=== PATIENT | female | born 1955 | race Caucasian/White ===

== ENCOUNTER 2020-06-14 02:27 | Outpatient (CLI) | payer BC, SELFPAY ==
[2020-06-15 20:39] LABS: COVID-19 RT-PCR Result NEGATIVE (Negative)
== END 2020-06-14 02:47 ==
PROVIDERS: PCP Family Medicine; Visit Provider Nurse Practitioner
DX: Z11.59 Encounter for screening for other viral diseases (principal); Z01.811 Encounter for preprocedural respiratory examination
CPT/HCPCS: U0003

== ENCOUNTER 2021-03-11 02:06 | Outpatient (CLI) | payer MEDICARE, BC, SELFPAY ==
--- NOTE | 2021-03-11 07:15 | DI.RAD_ITS ---
Exam(s) XR HIP LT COMPLETE AP PELVIS EXAM: XR HIP LT COMPLETE AP PELVIS CLINICAL HISTORY: left hip pain, chronic, G89.29, M25.552 TECHNIQUE: COMPARISON: No exams were available for comparison FINDINGS: Two views were obtained. There are multiple enthesophytes of the greater trochanter of the femur on the left. Cartilaginous joint spaces of right and left hips are fairly well maintained. Minimal mar ginal osteophyte formation of the acetabula and femoral heads noted bilaterally. Mild bilateral DJD of the SI joints noted. IMPRESSION: Degenerative changes as described above, mild DJD both hips. RADIATION DOSE DELIVERED: Total DLP
== END 2021-03-11 02:26 ==
PROVIDERS: PCP Family Medicine; Visit Provider Nurse Practitioner Family
DX: M16.0 Bilateral primary osteoarthritis of hip (principal)
CPT/HCPCS: 73502

== ENCOUNTER 2021-07-04 01:59 | Outpatient (CLI) | payer MEDICARE, BC, SELFPAY ==
[2021-07-04 12:02] LABS: Iron 96 ug/dL (50-170); Total Iron Binding Capacity 244 ug/dL (250-450); Transferrin Sat 39 % (15-50)
[2021-07-04 12:17] LABS: ALT 42 U/L (14-59); AST 19 U/L (15-37); Albumin 3.9 g/dL (3.4-5.0); Alkaline Phosphatase 75 U/L (46-116); Anion Gap 10.5 mmol/L (3-11); BUN 6 mg/dL (7-18); Bilirubin, Total 0.8 mg/dL (0.2-1.0); CO2 25.5 mmol/L (21.0-32.0); CREATININE 0.6 mg/dL (0.55-1.02); Calcium 9.1 mg/dL (8.5-10.1); Calculated LDL 173 mg/dL (<100); Chloride 106 mmol/L (98-107); Cholesterol 233 mg/dL (<200); Ferritin 205 ng/mL (8-252); Glucose 96 mg/dL (74-106); HDL Cholesterol 52 mg/dL (40-60); Potassium 4.3 mmol/L (3.5-5.1); Sodium 142 mmol/L (136-145); TSH (W/Ref FT4) 1.04 uIU/mL (0.36-3.74); Total Protein 6.5 g/dL (6.4-8.2); Triglyceride 41 mg/dL (<150)
[2021-07-07 11:45] LABS: Hepatitis C Ab w Rflx HCV PCR Negative (Negative)
== END 2021-07-04 02:00 | disposition home or self-care (01) ==
LOC: LBO 01:59
PROVIDERS: PCP Family Medicine; Visit Provider Family Medicine
DX: E03.9 Hypothyroidism, unspecified (principal); D50.9 Iron deficiency anemia, unspecified; G25.81 Restless legs syndrome; G47.33 Obstructive sleep apnea (adult) (pediatric)
CPT/HCPCS: 36415; 80053; 80061; 86803; 82728; 83540; 83550; 84443

== ENCOUNTER 2022-07-14 12:39 | Outpatient (CLI) | payer MEDICARE, BC, SELFPAY ==
[2022-07-14 12:02] LABS: Hemoglobin A1C 5.3 % (<5.7)
[2022-07-14 12:11] LABS: Anion Gap 6.1 mmol/L (3-11); BUN 9 mg/dL (7-18); CO2 30.9 mmol/L (21.0-32.0); CREATININE 0.8 mg/dL (0.55-1.02); Calcium 9.2 mg/dL (8.5-10.1); Calculated LDL 141 mg/dL (<100); Chloride 106 mmol/L (98-107); Cholesterol 235 mg/dL (<200); Estimated GFR 81.21 (mL/min/1.73m2); Glucose 114 mg/dL (74-106); HDL Cholesterol 80 mg/dL (40-60); Potassium 3.8 mmol/L (3.5-5.1); Sodium 143 mmol/L (136-145); Triglyceride 71 mg/dL (<150)
== END 2022-07-14 12:40 | disposition home or self-care (01) ==
LOC: LBO 12:40
PROVIDERS: PCP Family Medicine; Visit Provider Nurse Practitioner Family
DX: E66.9 Obesity, unspecified (principal); E78.5 Hyperlipidemia, unspecified; R73.01 Impaired fasting glucose
CPT/HCPCS: 36415; 80048; 80061; 83036

== ENCOUNTER 2022-08-19 15:28 | Outpatient (REF) | payer MEDICARE, BC, SELFPAY ==
[2022-08-19 16:25] LABS: C Diff PCR Negative (Negative)
[2022-08-20 11:09] LABS: Salmonella PCR Negative (Negative); Shiga Toxin PCR Negative (Negative); Shigella/Enteroinvasive Ecoli Negative (Negative)
[2022-08-20 16:37] LABS: Campylobacter PCR Positive (Negative)
== END 2022-08-19 15:29 | disposition home or self-care (01) ==
LOC: LBN 15:28
PROVIDERS: PCP Family Medicine; Visit Provider Physician Assistant
DX: R19.7 Diarrhea, unspecified (principal)
CPT/HCPCS: 87493; 87505; 87177

== ENCOUNTER 2022-12-30 16:44 | Outpatient (CLI) | payer MEDICARE, BC, SELFPAY ==
--- NOTE | 2022-12-30 15:30 | DI.RAD_ITS ---
Exam(s) XR SHOULDER RT COMPLETE 2+V XR HUMERUS RT EXAM: XR SHOULDER RT COMPLETE 2+V and XR humerus RT CLINICAL HISTORY: Rt shoulder pain, M25.511, evaluate pathology. TECHNIQUE: 2D digital imaging was performed of the right shoulder. Seven images were obtained. AP, Grashey, Y-view and axillary views were obtained. COMPARISON: CR RIGHT SHOULDER COMPLETE from 10/16/2011 CR XR HUMERUS RT from 12/30/2022 FINDINGS: BONES: There is a sideplate and screws transfixing the old healed proximal right humeral fracture. T here is flattening of the articular surface of the humeral head. No bony destructive lesion is seen. There is no acute fracture or dislocation present. The bones are osteopenic. JOINTS: No dislocation present. Degenerative changes are seen at both the glenohumeral and acromiocla vicular joints characterized by bony hypertrophy and joint space narrowing. SOFT TISSUE: Normal. IMPRESSION: 1. Old fracture deformity of the proximal right humerus. 2. Degenerative changes at the acromioclavicular and glenohumeral joints. DATA REPOSITORY: RADIATION DOSE DELIVERED:
== END 2022-12-30 17:04 ==
LOC: DI 16:47
PROVIDERS: PCP Family Medicine; Visit Provider Family Medicine
DX: M25.511 Pain in right shoulder (principal); M89.8X2 Other specified disorders of bone, upper arm
CPT/HCPCS: 73030; 73060

== ENCOUNTER → 2023-06-25 03:07 | Outpatient (CLI) | payer MEDICARE, BC, SELFPAY ==
--- NOTE | 2023-06-25 07:30 | DI.DEXA_ITS ---
Exam(s) XR DEXA BONE DENSITY W/WO KISHOR EXAM: XR DEXA BONE DENSITY W/WO KISHOR CLINICAL HISTORY: SCREENING FOR OSTEOPOROSIS IN POSTMENOPAUSAL WOMAN,Z78.0 TECHNIQUE: HoloLumenpulse Horizon C densitometer analysis of left hip, lumbar spine and left forearm. Lat eral survey image of the thoracic and lumbar spine. COMPARISON: CR XR HUMERUS RT from 12/30/2022 FINDINGS: Lateral view of the thoracic and lumbar spine shows no evidence of compression fractures. Bone mineral density measurements of the lumbar spine correspond to a total T-score of 0.9, in the n ormal range Bone mineral density measurements of the left hip correspond to a total T-score of 0.3. The femoral neck T-score is -0.9, in the normal range.. Theleft forearm bone mineral density measurements correspond to a T-score of the distal 3rd of 0.3, in the normal range.. IMPRESSION: Normal bone mineral density.
== END ==
PROVIDERS: PCP Family Medicine; Visit Provider Nurse Practitioner Family
DX: Z78.0 Asymptomatic menopausal state (principal); Z13.820 Encounter for screening for osteoporosis
CPT/HCPCS: 77080

== ENCOUNTER → 2023-08-16 08:56 | Outpatient (BNVA) | payer MEDICARE, BC, SELFPAY | PROVIDERS: PCP Family Medicine; Referring Provider Family Medicine; Visit Provider Surgery | DX: Z12.11 Encounter for screening for malignant neoplasm of colon (principal); D12.6 Benign neoplasm of colon, unspecified; Z85.3 Personal history of malignant neoplasm of breast ==

== ENCOUNTER 2023-09-03 09:15 | Day surgery (SDC) | payer MEDICARE, BC, SELFPAY ==
--- NOTE | 2023-09-02 19:51 | COLE_ITS ---
Date of service: 09/03/23 Time of Service: 11:20 Colonoscopy Report Date of procedure: 09/03/23 Pre-op diagnosis general: adenomatous polyps/diverticula Post-op diagnosis procedure note: same Surgeon: Smita Mora Anesthesia Type: General:No Airway Estimated blood loss (mL): 1 Complications: None Disposition: same day Prep: Miralax/Dulcolax Retraction Time: 14 Procedure Description: After informed consent was obtained the patient was taken to the procedure room and placed in a left decubitous position. Monitors were applied and a time out was done. The patients name, date of , procedure, allergies to medications and metal in their body was reviewed. The patient was then sedated. Once sedated and comfortable a rectal exam was done. External exam was normal. Internal exam revealed a normal sphincter tone and no palpable masses. The scope was then introduced and retrofelexed. No internal hemorrhoids were identified. The scope was then advanced to the cecum without difficulty. The TI and appendiceal orifice were identified. The prep was BBPS 3 in all segments for a total of 9. The scope was then slowly retracted over 14 minutes back into the rectum. She has barrera diverticula throughout the entirety of the colon. Th ere are no signs of active bleeding or infection. She does have inspissated stool in many of the diverticula. She has a 0.75 cm pedunculated polyp at 20 cm. This is removed with a cold snare. All specimen is retrieved and no bleeding is noted the scope was removed and the patient was woken up and taken back to Same day surgery in stable condition. The patient tolerated the procedure well and there were no immediate complications. Follow up: The patient should follow up in 5-7 years, path pd, unless they develop changes in bowel habits or other new gastrointestinal complaints.
--- NOTE | 2023-09-02 19:54 | PDOC.DSDIS_ITS ---
Date of service: 09/03/23 Time of Service: 11:18 Discharge Plan Disposition Patient Disposition: Home Condition: Good Discharge Details Reason For Visit: colon scope Attending Provider: Smita Mora Primary Care Provider: Myriam Liu Home Meds and New Rx's Prescriptions: Continued varicella-zoster gE-AS01B (PF) 50 mcg/0.5 mL suspension for reconstitution 0.5 ml IM ONCE Qty: 1 0RF Rx Instructions: 2 doses 2 months apart Systane Complete 0.6 % drops 1 drp ophthalmic (eye) DAILY PRN metronidazole 0.75 % cream 1 applic topical DAILY PRN Discontinued polyethylene glycol 3350 17 gram/dose powder 238 g PO ONCE Qty: 238 0RF Rx Instructions: take per colonoscopy instructions bisacodyl [Dulcolax (bisacodyl)] 5 mg tablet,delayed release (DR/EC) 5 mg PO ONCE Qty: 4 0RF Rx Instructions: take per colonoscopy instructions Discharge Instructions Additional Instructions: [facility] Colonoscopy Post- Op Instructions Instructions for Everyone who is given Anesthesia: For your safety, please do the following for the next twenty-four (24) hours: *Do Not operate a motor vehicle (car, truck, motorcycle, etc.) *Do Not drink alcoholic beverages or use any recreational drugs for the first 24 hours or while taking pain medications. The medications in your body may have a reaction that can be dangerous. *Do Not make any important decisions or sign any important papers. Findings: polypx1 diverticular disease-make sure you are moving your bowels on a regular basis and you are not straining to go to the bathroom. Straining/constipation can cause bleeding and infections. Consider starting Metamucil or a fiber supplement daily Follow up: My office will send you a letter in 2 to 3 weeks time with the results of the pathology and when we want you to repeat the colonoscopy, most likely 5 to 7 years time. 1. No lifting over 20 pounds or strenuous activity for the first 24 hours after your procedure. After 24 hours there are no restrictions on your activity but you may feel fatigued for a few days. 2. After you arrive home you may have a light meal and return to your normal diet as you can tolerate it without feeling sick to your stomach. 3. You may have a bloated, gaseous feeling in your belly (abdomen) after a colonoscopy. Passing gas and belching will help. Walking or lying down on your left side with your knees flexed may relieve the discomfort. Call the office at [phone] (Office) or [phone] (Hospital) right away if you notice any of the following: a.Vomiting of blood or ?coffee ground stools?. b.Rectal bleeding 1Tbsp, blood clots or continuous bleeding. c.Severe belly (abdominal) pain. d.A hard distended belly (abdomen) and an inability to pass gas. 4. Please don?t expect to have a normal BM (bowel movement) for 2-3 days after your procedure. 5. If there are questions regarding the findings of your procedure, please contact your doctor 6. If you are unable to contact your doctor with a problem, contact the hospital at [phone]. 7. Continue all your regular medications unless directed otherwise. I understand the above instructions and have no questions. Signature of Patient or Adult Escort Name of Responsible Adult Escort Signature of Nurse Date/Time Activity:: see above Diet:: see above Discharge Orders Discharge Orders: Discharge Order (Routine); Ordered 09/03/23 Ordered By: Smita Mora DS: Diagnosis Discharge Diagnosis (1) History of left breast cancer: Status: Acute (2) Hyperlipidemia: Status: Acute (3) Tubular adenoma of colon: Status: Acute (4) Obstructive sleep apnea: Status: Chronic (5) Obesity (BMI 30.0-34.9): Status: Acute (6) Restless leg syndrome: Status: Acute (7) Diverticulosis: Status: Acute Asessment and Plan: The patient is seen and examined after their colonoscopy.? The patient has been able to pass gas.? They are not having abdominal pain.? They have been able to tolerate liquids and a snack.? They do not have any nausea or vomiting.? They are not having any chest pain or shortness of breath.??? They are not having any rectal bleeding. Their vital signs have been stable-see nursing notes. We discussed findings during their colonoscopy, and any biopsies that were done/polyps that were removed. The patient will be sent a letter with any biopsy results, and when to repeat the colonoscopy.-see discharge instructions. Patient was given explicit instructions to follow-up regarding colonoscopy-refer to discharge instructions.? We reviewed resumption of medications. Patient verbalized understanding and discharged in stable and satisfactory condition- See nursing notes.
[2023-09-03 09:39] VITALS: BP 136/91; PULSE 81; RESP 16; TEMP 36.2; O2SAT 96
[2023-09-03] MEDS: Lactated Ringers 1,000 ML 80 ML IV (09:47)
--- NOTE | 2023-09-03 10:10 | ANES.PREOP_ITS ---
General Info Date of Service Date Performed: 09/03/23 Height: 5 ft 6 in Weight: 88.6 kg Body Mass Index (BMI): 31.5 Surgical Procedure: Operation Date: 09/03/23 09:35 Proposed Procedure Side Surgeon estefany Mora, DO Meds Allergies and Home Medications Allergies Allergy/AdvReac Type Severity Reaction Status Date / Time No Known Allergies Allergy Verified 09/03/23 09:53 Home Medication Medication Instructions Recorded metronidazole 0.75 % topical cream 1 applic topical DAILY PRN 06/03/22 varicella-zoster glycoE vacc-AS01B 0.5 ml IM ONCE #1 ea 06/04/23 adj(PF) 50 mcg/0.5 mL IM susp, kit propylene glycol 0.6 % eye drops 1 drp ophthalmic (eye) DAILY PRN 08/16/23 (Systane Complete) Current Visit Medications: Current Medications Generic Name Dose Route Start Last Admin Trade Name Freq PRN Reason Stop Dose Admin Hyoscyamine Sulfate 0.125 mg 09/03/23 07:48 Hyoscyamine 0.125 Mg Sl/Oral/Chew SL 10/03/23 07:47 DIRECTED PRN Ringer's Solution 1,000 mls @ 80 mls/hr 09/03/23 06:00 09/03/23 09:47 IV 09/03/23 23:59 80 mls/hr INFUSION GREGG Administration IV Miscellaneous Supplies 1 each 09/03/23 06:00 Iv Access IV 09/03/23 23:59 DIRECTED GREGG Ondansetron HCl 4 mg 09/03/23 07:48 Ondansetron 4 Mg/2 Ml Vial IVP 10/03/23 07:47 Q4H PRN PRN Nausea / Vomiting Sodium Chloride 0 ml 09/03/23 06:00 Normal Saline Flush 10 Ml Syr IV 09/03/23 23:59 PRN PRN Sodium Chloride 0 ml 09/03/23 06:00 Normal Saline 10 Ml Vial IJ 09/03/23 23:59 DIRECTED PRN Sterile Water 0 ml 09/03/23 06:00 Water,Injection,Sterile 10 Ml Vial IJ 09/03/23 23:59 DIRECTED PRN PFSH Active Problems Active Problems: Problem Status Onset Code Diverticulosis K57.90 History of left breast cancer Z85.3 Left shoulder pain M25.512 Hyperlipidemia E78.5 Lipoma of back D17.1 Rosacea L71.9 Left tennis elbow M77.12 Tubular adenoma of colon 01/19/17 D12.6 Restless leg syndrome G25.81 Obstructive sleep apnea G47.33 Obesity (BMI 30.0-34.9) E66.9 Medical History Medical History Closed fracture of humerus, upper epiphysis left Ductal carcinoma of breast, estrogen receptor positive, stage 1 (~1996) managed at [facility] Shoulder pain Medical History Comments:: 09/03/23: do not do IV's/BP on LEFT side Surgical History Surgical History Breast, Lumpectomy left; lumpectomy for malignant Tobacco Smoking/Tobacco Use Status: Never Passive smoking exposure: Yes Second hand exposure: Yes Alcohol Alcohol Intake: current Alcohol intake frequency: a few times a week Alcohol type: beer, wine and hard liquor Counseling provided: provider counseling Substance Use Substance use: Rarely Substance use type: marijuana Details: 09/03/23: Marijuana helps her sleep, last used 1 week ago. Vital Signs and Lab Results Vital Signs Most Recent Vital Signs in EMR: Most Recent Vital Signs Temp Pulse Resp BP Pulse Ox 36.2 C L 81 16 136/91 H 96 09/03/23 09:39 09/03/23 09:39 09/03/23 09:39 09/03/23 09:39 09/03/23 09:39 Lab Results Blood Type / Crossmatch: No Data to Display Complete Blood Count: No Data to Display Complete Metabolic Panel: No Data to Display Liver Function Panel: No Data to Display Coagulation Panel: No Data to Display Cardiac Panel: No Data to Display Arterial Blood Gas: No Data to Display Venous Blood Gas: No Data to Display Pancreas Panel: No Data to Display Thyroid Panel: No Data to Display Infectious Disease: No Data to Display Blood Cultures: No Data to Display Toxicology Panel: No Data to Display Anesthesia Assessment and Plan Anesthesia History Personal History: No History of Anesthesia Complications Family History: No Family History of Anesthesia Complications Exercise Tolerance Exercise Tolerance: Metabolic Equivalents>4 Pertinent Negatives Pertinent Negatives: No Symptoms of GERD, No Major Cardiovascular Symptoms or Complaints, No Major Pulmonary Symptoms or Complaints and No History of CVA/TIA Cardiac & Pulmonary Exam Cardiac Exam: Normal S1/S2 Heart Sounds Pulmonary Exam: Clear Bilateral Breath Sounds Implantable Cardiac Device Does patient have a Pacemaker or an ICD?: No Airway Exam Known Difficult Airway: No Mallampati Class: 2 Mouth Opening: Normal (> 3cm) Thyromental Distance: Greater than 3 cm Neck Range of Motion: Full ROM Neck Circumference: Normal Teeth Condition: Normal Dentition ASA Classification ASA Score: ASA 2 Emergency Case?: No NPO Status NPO Status: NPO Clears >2 hours, Solids >8 hours Anesthesia Plan Resuscitation Status: Full Code Anesthesia Technique: General Anesthesia Airway Planned: Natural Airway Monitors Used: Standard Monitors
[2023-09-03 10:13] VITALS: BMI 31.5
--- NOTE | 2023-09-03 10:52 | BOWEL_PTH ---
PATIENT: Zacarias Lewis LOC: [facility] U#:[id number] AGE/SX: 68/F ROOM: RE09/03/[address]: Smita Mora : 1955 BED: DIS: 09/03/2023 SPEC #: [id number] RECD: 09/03/23 12:49 STATUS: WESLEY REQ #: [id number] ASHLYN: 09/03/23 10:[address]: Smita Mora DEPT: Surgical Specimen RECD BY: Madhavi Lucas ENTERED: 09/03/23 12:50 SP TYPE: Bowel OTHR DR: Myriam Liu Tissues: 1 - BIOPSY BOWEL Procedures: GROSS AND MICRO LEVEL 4 Comments: [id number]
[2023-09-03 11:05] VITALS: BP 107/79; PULSE 86; RESP 16; TEMP 36.6; O2SAT 97
--- NOTE | 2023-09-03 11:13 | W.ANESPOSTOP ---
Postoperative Evaluation Date, Time and Location Date Performed: 09/03/23 Time Performed: 11:13 Patient Location: Day Surgery Unit Vital Signs Most Recent Imported Vital Signs: Most Recent Vital Signs Temp Pulse Resp BP Pulse Ox 36.6 C 86 16 107/79 97 09/03/23 11:05 09/03/23 11:05 09/03/23 11:05 09/03/23 11:05 09/03/23 11:05 Pain Score Most Recent Pain Score: Most Recent Pain Score Pain Level 0 09/03/23 11:05 Assessment Mental Status: Awake (Alert & Oriented to Patient Baseline) Airway and Respiratory Function: Patent airway with normal (patient baseline) respiratory exam Cardiovascular Function: Hemodynamically Stable Hydration Status: Adequately Hydrated Nausea & Vomiting: No Nausea or Vomiting Pain: Pt. Denies Any Pain Peripheral Nerve Block: Patient did not receive a nerve block
[2023-09-03 11:34] VITALS: BP 136/82; PULSE 72; RESP 16; TEMP 36.4; O2SAT 97
== END 2023-09-03 12:25 | disposition home or self-care (01) ==
LOC: SUR 09:15
PROVIDERS: PCP Family Medicine; Visit Provider Surgery
PROC: 0DJD8ZZ Inspection of Lower Intestinal Tract, Via Natural or Artificial Opening Endoscopic (ICD-10-PCS; CPT 45378; principal; 2023-09-03 09:30)
DX: G47.33 Obstructive sleep apnea (adult) (pediatric) (principal); Z12.11 Encounter for screening for malignant neoplasm of colon; K57.90 Diverticulosis of intestine, part unspecified, without perforation or abscess without bleeding; D37.4 Neoplasm of uncertain behavior of colon; J44.9 Chronic obstructive pulmonary disease, unspecified
CPT/HCPCS: 45385; 88305; J2001

== ENCOUNTER → 2024-04-10 10:29 | Outpatient (BNVA) | payer MEDICARE, BC, SELFPAY | PROVIDERS: PCP Family Medicine; Referring Provider Family Medicine; Visit Provider Surgery | DX: D17.1 Benign lipomatous neoplasm of skin and subcutaneous tissue of trunk | CPT/HCPCS: 99213 ==

== ENCOUNTER 2024-05-09 07:12 | Day surgery (SDC) | payer MEDICARE, BC, SELFPAY ==
[2024-05-09 07:31] VITALS: BP 134/86; PULSE 80; RESP 16; TEMP 36.1; O2SAT 97
[2024-05-09] MEDS: Acetaminophen 500 MG TAB 1000 MG PO (07:44)
[2024-05-09] MEDS: Gabapentin 300 MG CAP 600 MG PO (07:44)
[2024-05-09] MEDS: Lidocaine/Prilocaine Cream 5 GM TUBE TP (07:47)
--- NOTE | 2024-05-09 09:00 | SOFT_PTH ---
PATIENT: Zacarias Lewis LOC: [facility] U#:[id number] AGE/SX: 69/F ROOM: RE05/09/[address]: Smita Mora : 1955 BED: DIS: 05/09/2024 SPEC #: [id number] RECD: 05/09/24 12:41 STATUS: WESLEY REQ #: [id number] ASHLYN: 05/09/24 09:[address]: Smita Mora DEPT: Surgical Specimen RECD BY: Madhavi Lucas ENTERED: 05/09/24 12:42 SP TYPE: SOFT OTHR DR: Myriam Liu Tissues: 1 - SOFT TISSUE MISC (INC. LIPOMA) Procedures: GROSS AND MICRO LEVEL 3 Comments: [id number]
[2024-05-09] MEDS: Lidocaine 1% Pres-Free 30 ML VIAL (09:12)
--- NOTE | 2024-05-09 09:29 | ROE_ITS ---
Date of service: 05/09/24 Time of Service: 09:29 Operative Note Operative Note DATE OF PROCEDURE: 05/09/24 PRE-OP DIAGNOSIS: lipoma POST-OP DIAGNOSIS: same PROCEDURE: exicison lipoma 3x2 SURGEON: Smita Mora ANESTHESIA TYPE: Local By Surgeon Refer to Anesthesia Record ESTIMATED BLOOD LOSS: 5 PATHOLOGY: other COMPLICATIONS: None Patient was transported to: same day Procedure Description: Patient is here today for lipoma removal. The lesion is marked in same day. She is brought to the procedure room and placed in left lateral position. Timeout was performed. The areas prepped and draped in the usual sterile fashion using Betadine scrub solution. Some filtrated 40 cc of 1% lidocaine. A inch and a half incision is made over the apex of the lesion horizontally. Electrocautery was used to provide hemostasis and dissect the lesion out from the subcutaneous tissue. He does appear to be a lipoma. It is 3 x 2 inches and appears to be a lipoma. This is sent to pathology. Again cautery was used for hemostasis. The wound is an 8 irrigated with sterile saline. Deep tissues approximated with 4-0 Vicryl and skin is approximated with 3-0 interrupted Pro estefanía. Sterile compression dressing is applied. Patient tub to do well without complication transferred to cover room in stable condition. She will follow-up with the office in 10 days for suture removal.
--- NOTE | 2024-05-09 09:30 | PDOC.DSDIS_ITS ---
Date of service: 05/09/24 Time of Service: 09:30 Discharge Plan Disposition Patient Disposition: Home Condition: Good Discharge Details Reason For Visit: lipoma removal Attending Provider: Smita Mora Primary Care Provider: Myriam Liu Home Meds and New Rx's Prescriptions: New tramadol 50 mg tablet 50 mg PO Q4H PRNQty: 7 0RF Rx Instructions: will cause constipation Continued Systane Complete 0.6 % drops 1 drp ophthalmic (eye) DAILY PRN metronidazole 0.75 % cream 1 applic topical DAILY PRN lutein 20 mg tablet 20 mg PO DAILY Rx Instructions: give with meal/snack Discharge Instructions Additional Instructions: Wound Care Instruction Pain Control Use ice!? Ice keeps the swelling down and swelling is what causes pain.? Never apply ice directly to the skin.? Wrap it in a towel or cloth.? Apply ice 20 minutes on and 20 minutes off for pain control.? Use as needed. Take Tylenol 500 mg by mouth with food every 4 hours as needed for pain. Or ibuprofen 600 mg by mouth with food every 6 hours as needed for pain.? Do not take Tylenol if you have a history of heavy drinking, hepatitis C or liver probl ems.? Do not take ibuprofen if you have a history of stomach ulcers/problems, bleeding problem or kidney issues. ? Always wash your hands before touching your incision. ? Keep the incision clean, dry, and out of water, keep the incision out of water. ? Do not to pick at the scabs. Scabs help protect the wound. ? You can take a shower in 24 hours and wash the incision with soap and water. Pat dry/don?t scrub. It?s OK to wash around the incision. But don?t spray water directly on it. ? Pat stitches dry if they get wet. Don't rub. ? Check the incision site daily for pain, redness, drainage, swelling, or separation of the incision edges. ? Make sure any clothing that touches the incision is loose-fitting. This will prevent rubbing. As your incision heals, the skin may appear pink or red. It may also feel slightly bumpy or raised. This is called a healing ridge. Over time, the color should fade and the raised skin will become less noticeable. When to seek medical care Call your healthcare provider right away if you have any of these: ? More pain, redness, swelling, bleeding, or foul-smelling discharge around the incision area ? Fever of 101?F (38.3?C) or higher, or as directed by your child's healthcare provider ? Shaking chills ? Vomiting or nausea that doesn?t go away ? Numbness, coldness, or tingling around the incision area, or changes in skin color ? Opening of the sutures or wound -Stitches or izzy that come apart or fall out or surgical tape falls off before 7 days, or as directed by your healthcare provider ?[facility]: [phone] Stand Alone Forms: Wood Ferrari ([facility]) Referrals: Smita Mora DO [OSTEOPATHIC DOCTOR] - 05/22/24 9:45 am Activity:: see above Remove Dressings/Wound Care:: 24 hours Shower/Bathe:: 24 hours Diet:: As Tolerated DS: Diagnosis Discharge Diagnosis (1) Lipoma of back: Status: Acute Asessment and Plan: The patient is doing well post-op from their lipoma removal.? They are having no nausea or vomiting. They are tolerating liquids and a snack. The pt is not having any chest pain or SOB.? Their pain is adequately controlled. They have been able to urinate.? ?HEENT:? no eye pain/drainage/redness/swelling. Mild sore throat ?Cardio- NSR, no chest pain, BP stable- see VS record ?Pulm: no sob or productive cough. No hemoptysis ?Incision- dressing is c/d/i w/ no excessive bleeding or drainage ?I discussed with the patient the findings at the time of surgery and the patient?s progress. ?We reviewed expectations at home; what the patient could expect for recovery time, and in the post-operative period.? We discussed the importance of walking to avoid blood clots and pneumonia.? We discussed and reviewed the patient's post-operative wound care and dressing needs.?? We reviewed their step-colvin pain management plan, Rx called to the pharmacy of their choice.? We reviewed activity and limitations-see discharge instructions. We reviewed warning signs, and when to seek medical attention- see d/c instructions.?? Patient was given a postoperative follow-up appointment. Patient verbalized understanding of their postoperative instructions, how do to take care of themselves and their incision, and the pain management plan. Please see discharge instructions.?
[2024-05-09 09:32] VITALS: BP 158/81; PULSE 63; RESP 16; TEMP 36.2; O2SAT 97
--- NOTE | 2024-05-09 09:36 | W.PM.DSUDISC ---
Date of service: 05/09/24 Time of Service: 09:39 Discharge Plan Disposition Patient Disposition: Home Condition: Good Discharge Details Reason For Visit: lipoma removal Attending Provider: Smita Mora Primary Care Provider: Myriam Liu Home Meds and New Rx's Prescriptions: New tramadol 50 mg tablet 50 mg PO Q4H PRNQty: 7 0RF Rx Instructions: will cause constipation Continued Systane Complete 0.6 % drops 1 drp ophthalmic (eye) DAILY PRN metronidazole 0.75 % cream 1 applic topical DAILY PRN lutein 20 mg tablet 20 mg PO DAILY Rx Instructions: give with meal/snack Discharge Instructions Additional Instructions: Wound Care Instruction Pain Control Use ice!? Ice keeps the swelling down and swelling is what causes pain.? Never apply ice directly to the skin.? Wrap it in a towel or cloth.? Apply ice 20 minutes on and 20 minutes off for pain control.? Use as needed. Take Tylenol and ibuprofen continuously for the first 3 days, not just when you had pain. After that you can take it as needed for pain. You do have a few Ultram for pain greater than a 7. Take Tylenol 500 mg by mouth with food every 4 hours as needed for pain. Or ibuprofen 600 mg by mouth with food every 6 hours as needed for pain.? Do not take Tylenol if you have a history of heavy drinking, hepatitis C or liver problems.? Do not take ibuprofen if you have a history of stomach ulcers/problems, bleeding problem or kidney issues. ? Always wash your hands before touching your incision. ? Keep the incision clean, dry, and out of water. You can shower but do not soak. ? Do not to pick at the scabs. Scabs help protect the wound. ? You can take a shower in 24 hours and wash the incision with soap and water. Pat dry/don?t scrub. ? Pat stitches dry if they get wet. Don't rub. * You will want to keep Band-Aid on the incision. * No lifting over 5 pounds with right arm for 5 days ? Check the incision site daily for pain, redness, drainage, swelling, or separation of the incision edges. ? Make sure any clothing that touches the incision is loose-fitting. This will prevent rubbing. As your incision heals, the skin may appear pink or red. It may also feel slightly bumpy or raised. This is called a healing ridge. Over time, the color should fade and the raised skin will become less noticeable. When to seek medical care Call your healthcare provider right away if you have any of these: ? More pain, redness, swelling, bleeding, or foul-smelling discharge around the incision area ? Fever of 101?F (38.3?C) or higher, or as directed by your child's healthcare provider ? Shaking chills ? Vomiting or nausea that doesn?t go away ? Numbness, coldness, or tingling around the incision area, or changes in skin color ? Opening of the sutures or wound -Stitches or izzy that come apart or fall out or surgical tape falls off before 10 days, or as directed by your healthcare provider ?[facility]: [phone] Stand Alone Forms: Wood Ferrari (U) Referrals: Smita Mora DO [OSTEOPATHIC DOCTOR] - 05/22/24 9:45 am Activity:: see above Remove Dressings/Wound Care:: 24 hours Shower/Bathe:: 24 hours Diet:: As Tolerated DS: Diagnosis Discharge Diagnosis (1) Lipoma of back: Status: Acute
== END 2024-05-09 10:08 | disposition home or self-care (01) ==
PROVIDERS: PCP Family Medicine; Visit Provider Surgery
PROC: (CPT 11406; principal; 2024-05-09 08:15)
DX: D17.1 Benign lipomatous neoplasm of skin and subcutaneous tissue of trunk (principal); E66.9 Obesity, unspecified; G47.33 Obstructive sleep apnea (adult) (pediatric); Z85.3 Personal history of malignant neoplasm of breast; E78.5 Hyperlipidemia, unspecified
CPT/HCPCS: 11406; 12032; 88304

== ENCOUNTER → 2024-05-22 09:31 | Outpatient (BNVA) | payer MEDICARE, BC, SELFPAY | PROVIDERS: PCP Family Medicine; Referring Provider Family Medicine; Visit Provider Surgery | DX: Z48.817 Encounter for surgical aftercare following surgery on the skin and subcutaneous tissue (principal); D17.1 Benign lipomatous neoplasm of skin and subcutaneous tissue of trunk ==

== ENCOUNTER → 2024-06-05 15:03 | Outpatient (BNVA) | payer MEDICARE, BC, SELFPAY | PROVIDERS: PCP Family Medicine; Referring Provider Family Medicine; Visit Provider Physical Therapy Assistant | DX: Z48.817 Encounter for surgical aftercare following surgery on the skin and subcutaneous tissue (principal); Z48.02 Encounter for removal of sutures ==

== ENCOUNTER 2024-07-31 01:35 | Outpatient (CLI) | payer MEDICARE, BC, SELFPAY ==
--- NOTE | 2024-07-31 | DI.US_ITS ---
Exam(s) US BREAST LT COMPLETE US BREAST RT COMPLETE MG MAMMO SCREENING 60 MIN DUR EXAM: MG MAMMO SCREENING 60 MIN AND BILATERAL COMPLETE BREAST ULTRASOUND CLINICAL HISTORY: breast cancer screening,personal h/o breast ca,z85.3,z12.39. TECHNIQUE: Bilateral full field digital CC and MLO mammographic images were obtained with 3D tomosyn thesis and utilizing computer aided detection (CAD). Also performed BILATERAL COMPLETE BREAST ULTRASOUND including all 4 quadrants of both breasts, the re troareolar regions, and both axillary regions. COMPARISON: Prior outside mammograms were reviewed. This patient has had a remote lateral left bandar st lumpectomy for malignancy and has subsequently had an excisional biopsy in the retroareolar region of the left breast in [place] few years ago. FINDINGS: MAMMOGRAM: Architectural distortion and indrawn nipple on the left side again noted. The left breast lumpectomy site located laterally also appears stable. In the left breast on the CC view there is a small well-defined nodular density located slightly medi al of center approximately 7 cm in from the nipple measuring approximately 3 x 4 mm, unchanged from . Benign calcified oil cysts are seen laterally near the region of prior lumpectomy. There are no new malignant-appearing no calcification groups in the left breast. Right breast there are few small nodular densities noted at 12 o'clock position, these measuring 4 mm and located approximately 6 cm in from the nipple on the CC view. Another more centrally located well-defined nodular density is also noted. These are all shown to be microcysts on ultrasound performed following today's mammogram. There are no new spiculated masses nor malignant-appearing microcalcification groups in the right [place] ast. There is no significant architectural distortion nor skin thickening-retraction. BILATERAL COMPLETE BREAST ULTRASOUND: Right breast ultrasound: At the 12 o'clock position there are 2 small microcysts measuring 3 and 4 mm, these corresponding to the new findings on the mammogram. There is also an 8 x 4 mm benign microcyst at 6 o'clock position corresponding to other finding on the mammogram. There are no other significant focal findings in al l 4 quadrants of the right breast. Scanning of the right axilla is negative for adenopathy. Left breast ultrasound: There is scar-like tissue at the site of the remote lumpectomy located laterally as well as in the re gion of the more recently performed excisional biopsy in the retroareolar region. Otherwise, there are no solid or significant cystic lesions in all 4 quadrants of the left breast. T here are no focal findings seen on ultrasound to correspond to a benign-appearing nodular seen on the CC view.. This is most probably benign intramammary lymph node. Scanning of the left axilla is negative for adenopathy. IMPRESSION: 1. Few small new nodule seen in the right breast on mammography correspond to benign microcysts on u ltrasound as described above. There are no new solid right breast lesions. 2. Stable appearance of the 2 prior surgical sites in the left breast including a remote lumpectomy and more recently performed excisional biopsy in the retroareolar region. BI-RADS Category 2 - Benign Findings Breast Density - Category B - Scattered areas of fibroglandular density Breast density Category C or D implies that the patient has dense breast tissue. Dense breast tissue can make it harder to find cancer on a mammogram. Dense breast tissue is also associated with an incr eased risk of breast cancer. This information about the result of the mammogram report was provided to the patient to raise their awareness. Use this report when you speak with the patient about their risks for breast cancer, which includes their family history. At that time, you may recommend additional screening tests (Ultrasoun d or MRI) as these tests may add significant information. A negative radiographic report should not delay biopsy if a dominant or clinically suspicious mass is present. Up to ten percent of cancers are not identified on mammography. A negative report may reinforce clinical impression. Adenosis and dense breasts may obscure an underlying neoplasm. False positive reports average 6 to 10%. Patient will receive a letter notifying them of these results.
== END 2024-07-31 01:55 ==
LOC: DI 01:35
PROVIDERS: PCP Family Medicine; Visit Provider Family Medicine
DX: Z12.31 Encounter for screening mammogram for malignant neoplasm of breast (principal); Z85.3 Personal history of malignant neoplasm of breast; R92.8 Other abnormal and inconclusive findings on diagnostic imaging of breast
CPT/HCPCS: 76642; 77063; 77067

== ENCOUNTER 2024-09-02 13:16 | Outpatient (CLI) | payer MEDICARE, BC, SELFPAY ==
--- NOTE | 2024-09-02 13:29 | DI.RAD_ITS ---
Exam(s) XR CHEST 2V PA LATERAL EXAM: XR CHEST 2V PA LATERAL CLINICAL HISTORY: Cough unspecified ICD-10: RO5.9 TECHNIQUE: 2D digital imaging was performed of the chest. Two images were obtained. PA and lateral views were obtained. COMPARISON: No exams were available for comparison FINDINGS: MEDIASTINUM: Normal. HEART: Normal. PULMONARY VASCULATURE: Normal. LUNGS: Clear. PLEURAL SPACE: No pleural effusion or pneumothorax. BONE:Within normal limits for the patient's age. Sideplate and screw fixation set is seen in the pro ximal right humerus. OTHER FINDINGS:Normal. IMPRESSION: No acute pulmonary findings. DATA REPOSITORY: RADIATION DOSE DELIVERED:
--- NOTE | 2024-09-02 14:45 | DI.VRAD_ITS ---
PROCEDURE INFORMATION: Exam: XR Chest Exam date and time: 09/02/2024 1:19 PM Age: 69 years old Clinical indication: Cough TECHNIQUE: Imaging protocol: Radiologic exam of the chest. Views: 2 views. COMPARISON: CR XR HUMERUS RT 12/30/2022 4:13 PM FINDINGS: Lungs: Unremarkable. No consolidation. Pleural spaces: Unremarkable. No pleural effusion. No pneumothorax. Heart/Mediastinum: Unremarkable. No cardiomegaly. Vasculature: Unfolding of the thoracic aorta. Bones/joints: Mild degenerative disease of bilateral acromioclavicular joints. Chronic deformities of bilateral proximal humeral heads. Right humerus plate and screw fixation. Soft tissues: Left breast surgical clips. IMPRESSION: No acute cardiopulmonary process. Dictated and Authenticated by: Anival Fabian MD. Ordering:GABRIEL Wong MD
== END 2024-09-02 13:36 ==
PROVIDERS: PCP Family Medicine; Visit Provider Physician Assistant Medical
DX: R05.9 Cough, unspecified (principal)
CPT/HCPCS: 71046

== ENCOUNTER 2024-10-07 20:25 | Outpatient (REF) | payer MEDICARE, BC, SELFPAY ==
[2024-10-07 21:07] LABS: COVID-19 PCR Negative (Negative); Influenza A PCR Negative (Negative); Influenza B PCR Negative (Negative); RSV PCR Negative (Negative)
[2024-10-07 21:15] LABS: Source Nasopharynx
== END 2024-10-07 20:26 | disposition home or self-care (01) ==
LOC: LBN 20:25
PROVIDERS: PCP Family Medicine; Visit Provider Physician Assistant Medical
DX: R05.9 Cough, unspecified (principal)
CPT/HCPCS: 87637

== ENCOUNTER 2025-04-12 10:05 | Outpatient (CLI) | payer MEDICARE, BC, SELFPAY ==
[2025-04-12 10:15] LABS: Glucose Negative (Negative)
[2025-04-12 10:23] LABS: RBC 0-2 HPF (0-2); WBC Negative HPF (0-5)
[2025-04-12 10:24] LABS: C & S Indicated? No
[2025-04-12 11:38] LABS: Anion Gap 5.9 mmol/L (3-11); BUN 8 mg/dL (7-18); CO2 31.1 mmol/L (21.0-32.0); Calcium 9.0 mg/dL (8.5-10.1); Calculated LDL 114 mg/dL (<100); Chloride 107 mmol/L (98-107); Cholesterol 218 mg/dL (<200); Estimated GFR 97.10 (mL/min/1.73m2); Glucose 98 mg/dL (74-106); HDL Cholesterol 95 mg/dL (>or=50); Potassium 3.8 mmol/L (3.5-5.1); Sodium 144 mmol/L (136-145); Triglyceride 49 mg/dL (<150)
== END 2025-04-12 10:06 | disposition home or self-care (01) ==
PROVIDERS: PCP Family Medicine; Visit Provider Family Medicine
DX: R30.0 Dysuria (principal); I10 Essential (primary) hypertension; Z13.6 Encounter for screening for cardiovascular disorders; E78.5 Hyperlipidemia, unspecified
CPT/HCPCS: 36415; 80048; 80061; 81003; 81015

== ENCOUNTER 2025-07-04 13:17 | Outpatient (REF) | payer MEDICARE, BC, SELFPAY ==
[2025-07-04 15:59] LABS: ALT 26 U/L (14-59); AST 20 U/L (15-37); Albumin 3.9 g/dL (3.4-5.0); Alkaline Phosphatase 66 U/L (46-116); Anion Gap 13.1 mmol/L (3-11); BUN 5 mg/dL (7-18); Bilirubin, Total 1.1 mg/dL (0.2-1.0); CO2 25.9 mmol/L (21.0-32.0); Calcium 9.1 mg/dL (8.5-10.1); Chloride 104 mmol/L (98-107); Estimated GFR 101.46 (mL/min/1.73m2); Glucose 107 mg/dL (74-106); Potassium 3.7 mmol/L (3.5-5.1); Sodium 143 mmol/L (136-145); Total Protein 6.6 g/dL (6.4-8.2)
== END 2025-07-04 13:18 | disposition home or self-care (01) ==
LOC: LBN 13:17
PROVIDERS: PCP Family Medicine; Visit Provider Physician Assistant Medical
DX: R11.0 Nausea (principal)
CPT/HCPCS: 80053

== ENCOUNTER 2025-07-27 10:56 | Outpatient (CLI) | payer MEDICARE, BC, SELFPAY ==
[2025-07-30 11:27] LABS: Lyme Ab w Rflx to Lyme Confirm Negative (Negative)
== END 2025-07-27 10:57 | disposition home or self-care (01) ==
LOC: LBO 10:57
PROVIDERS: PCP Family Medicine; Visit Provider Family Medicine
DX: M25.50 Pain in unspecified joint (principal); W57.XXXA Bitten or stung by nonvenomous insect and other nonvenomous arthropods, initial encounter
CPT/HCPCS: 36415; 86618

== ENCOUNTER → 2025-09-07 00:11 | Outpatient (CLI) | payer MEDICARE, BC, SELFPAY ==
--- NOTE | 2025-09-07 | DI.US_ITS ---
Exam(s) US BREAST LT COMPLETE MG MAMMO SCREENING 60 MIN DUR EXAM: MG MAMMO SCREENING 60 MIN DUR AND COMPLETE LEFT BREAST ULTRASOUND CLINICAL HISTORY: breast cancer screening Z85.3 PERS HX LT BREAST CA. TECHNIQUE: Bilateral full field digital CC and MLO mammographic images were obtained with 3D tomosynthesis and utilizing computer aided detection (CAD). An additional spot compression view of the left breast was performed. COMPLETE LEFT BREAST ULTRASOUND was performed including all 4 quadrants as well as the retroareolar region. COMPARISON: Prior mammograms were reviewed. First lumpectomy was 1996. She also had an additional excisional biopsy in the retroareolar region of the left breast performed in [place] approximately 4 years ago, according to the patient FINDINGS: In the left breast there is architectural distortion and indrawing nipple again noted related to prior surgeries and the laterally located lumpectomy site remains stable. In the left breast there is a well-defined slightly lobulated noncalcified nodular density located medial of center approximately 7 cm in from the nipple on the CC view. This persists on spot compression view. On the MLO view it is also located approximately 7 cm in from the nipple. It measures approximately 12 x 7 mm on the MLO view and exhibits a notch. There are no malignant-appearing microcalcification groups is region or elsewhere in either breast. No new significant mammographic findings in the right breast. We proceeded with ultrasound of the left breast. COMPLETE LEFT BREAST ULTRASOUND: At the 12 o'clock position there is a superficial 3 mm microcyst. Scarring at the 1-2 o'clock lumpectomy site is noted At the peripheral 2 o'clock position there is shadowing from a benign macrocalcification evident. At the 3 o'clock retroareolar region there is scarring from the 2nd surgery evident. At the 10 o'clock position there is a finding which located 7 cm in from the nipple and most probably corresponds to the nodule on the mammogram. This has the appearance of a probable lymph node for conglomeration of hemorrhagic microcysts. It exhibits neutral and increased through transmission. There are no other focal findings in all 4 quadrants. Scanning of the left axilla is negative for significant adenopathy IMPRESSION: 1. No radiographic evidence of malignancy in the right breast. 2. 12 x 7 mm nodule in the right breast 7 cm in from the nipple on the mammogram and ultrasound. Presently exhibits benign appearance. Recommend repeat left breast mammogram and ultrasound in 6 months to ensure stability of this finding at the 10 o'clock position of the left breast. BI-RADS Category 3 - 6 month - Probably Benign Finding: Recommend follow-up mammography in 6 months Breast Density - Category B - There are scattered areas of fibroglandular density. Breast density Category C or D implies that the patient has dense breast tissue. Dense breast tissue can make it harder to find cancer on a mammogram. Dense breast tissue is also associated with an increased risk of breast cancer. This information about the result of the mammogram report was provided to the patient to raise their awareness. Use this report when you speak with the patient about their risks for breast cancer, which includes their family history. At that time, you may recommend additional screening tests (Ultrasound or MRI) as these tests may add significant information. A negative radiographic report should not delay biopsy if a dominant or clinically suspicious mass is present. Up to ten percent of cancers are not identified on mammography. A negative report may reinforce clinical impression. Adenosis and dense breasts may obscure an underlying neoplasm. False positive reports average 6 to 10%. Patient will receive a letter notifying them of these results.
== END ==
LOC: DI 00:11
PROVIDERS: PCP Family Medicine; Visit Provider Family Medicine
DX: R92.8 Other abnormal and inconclusive findings on diagnostic imaging of breast (principal); Z12.31 Encounter for screening mammogram for malignant neoplasm of breast
CPT/HCPCS: 76642; 77063; 77067